=== PATIENT | male | born 1965 | race Caucasian/White ===

== ENCOUNTER 2016-08-15 10:59 | Emergency (ER) | payer SELFPAY ==
[~2016-08-15] VITALS: Ht 182.9 cm; Wt 115.0 kg
[2016-08-15 11:20] VITALS: BP 134/96; PULSE 99; RESP 16; TEMP 98.8; O2SAT 98
[2016-08-15 12:58] VITALS: BP 128/92; PULSE 92; RESP 18; O2SAT 98
[2016-08-15] MEDS ORDERED: INSULIN HUMAN REGULAR 1,000 UNITS/10 ML VIAL IVP ONE (13:15)
[2016-08-15] MEDS ORDERED: SODIUM CHLOR 0.9% 1000 ML INJ 1,000 ML IV ONE ×2 (13:15)
[2016-08-15 13:18] LABS: AUTOMATED NEUTROPHIL # 6.8 TH/MM3 (1.8-7.7); BASOPHIL # 0.1 TH/MM3 (0-0.2); BASOPHIL % 0.6 % (0.0-2.0); EOSINOPHIL # 0.2 TH/MM3 (0-0.4); EOSINOPHIL % 1.8 % (0.0-4.0); LYMPH % 27.1 % (9.0-44.0); LYMPHOCYTE # 2.9 TH/MM3 (1.0-4.8); MEAN CELL VOLUME 83.8 FL (80.0-100.0); MEAN CORPUSCULAR HEMOGLOBIN 28.9 PG (27.0-34.0); MEAN CORPUSCULAR HGB CONC 34.4 % (32.0-36.0); MONO % 5.7 % (0.0-8.0); NEUT % 64.8 % (16.0-70.0); PLATELET COUNT 230 TH/MM3 (150-450); RED BLOOD COUNT 5.73 MIL/MM3 (4.50-5.90); RED CELL DISTRIBUTION WIDTH 12.3 % (11.6-17.2); WHITE BLOOD COUNT 10.6 TH/MM3 (4.0-11.0)
[2016-08-15 13:19] LABS: HEMO FLAGS DIFF FINAL
[2016-08-15 13:24] LABS: CHLORIDE 97 MEQ/L (98-107); SODIUM (NA) 136 MEQ/L (136-145)
[2016-08-15 13:27] LABS: ANION GAP 14 MEQ/L (5-15); BICARBONATE 24.9 MEQ/L (21.0-32.0)
[2016-08-15 13:28] LABS: BLOOD UREA NITROGEN 19 MG/DL (7-18)
[2016-08-15 13:30] LABS: ALT (GPT) 25 U/L (12-78)
[2016-08-15 13:31] LABS: AST (GOT) 9 U/L (15-37); GLOMERULAR FILTRATION RATE 71 ML/MIN (>89)
[2016-08-15 13:32] LABS: TOTAL BILIRUBIN ADULT 0.6 MG/DL (0.2-1.0)
--- NOTE | 2016-08-15 13:32 | PD ---
HPI Chief Complaint: Complaint Time Seen by Provider: 12:51 Travel History International Travel<30 days: No Contact w/Intl Traveler<30days: No Traveled to known affect area: No History of Present Illness HPI This is a 50-year-old male who presents to the emergency department with fatigue , poor exercise tolerance, as well as polyuria and polydipsia. His symptoms of been constant, moderate severity and worsening over the past week. He was concerned that his sugar might be elevated. He's never been diagnosed with diabetes before. He says he's lost weight in the setting of this. He used to her primary care physician but his primary care physician and he never followed up with anyone new. [facility] Past Medical History Medical History: Denies Significant Hx Tetanus Vaccination: > 5 Years Influenza Vaccination: No Social History Alcohol Use: Yes (very rarely) Tobacco Use: Yes (1 ppd) Substance Use: No Allergies-Medications (Allergen,Severity, Reaction): Coded Allergies: No Known Allergies (Unverified , 08/15/16) Reported Meds & Prescriptions Reported Meds & Active Scripts Active No Active Prescriptions or Reported Medications Review of Systems Except as stated in HPI: all other systems reviewed are Neg Physical Exam Narrative GENERAL: Well-nourished, well-developed patient. SKIN: Warm and dry. HEAD: Normocephalic. EYES: No scleral icterus. No injection or drainage. NECK: Supple, trachea midline. CARDIOVASCULAR: Regular rate and rhythm without murmurs. RESPIRATORY: Breath sounds equal bilaterally. No accessory muscle use. GASTROINTESTINAL: Abdomen soft, non-tender, nondistended. MUSCULOSKELETAL: No cyanosis, or edema. Data Data Last Documented VS Vital Signs Date Time Temp Pulse Resp B/P Pulse Ox O2 Delivery O2 Flow Rate FiO2 08/15/16 12:58 92 18 128/92 98 Room Air 08/15/16 11:20 98.8 Orders Complete Blood Count With Diff (08/15/16 13:03) Comprehensive Metabolic Panel (08/15/16 13:03) Sodium Chlor 0.9% 1000 Ml Inj (Ns 1000 M (08/15/16 13:15) Insulin Human Regular Inj (Novolin R Inj (08/15/16 13:15) Sodium Chlor 0.9% 1000 Ml Inj (Ns 1000 M (08/15/16 13:15) Labs Laboratory Tests Test 08/15/16 13:13 White Blood Count 10.6 TH/MM3 Red Blood Count 5.73 MIL/MM3 Hemoglobin 16.5 GM/DL Hematocrit 48.0 % Mean Corpuscular Volume 83.8 FL Mean Corpuscular Hemoglobin 28.9 PG Mean Corpuscular Hemoglobin 34.4 % Concent Red Cell Distribution Width 12.3 % Platelet Count 230 TH/MM3 Mean Platelet Volume 10.1 FL Neutrophils (%) (Auto) 64.8 % Lymphocytes (%) (Auto) 27.1 % Monocytes (%) (Auto) 5.7 % Eosinophils (%) (Auto) 1.8 % Basophils (%) (Auto) 0.6 % Neutrophils # (Auto) 6.8 TH/MM3 Lymphocytes # (Auto) 2.9 TH/MM3 Monocytes # (Auto) 0.6 TH/MM3 Eosinophils # (Auto) 0.2 TH/MM3 Basophils # (Auto) 0.1 TH/MM3 CBC Comment DIFF FINAL Differential Comment Sodium Level 136 MEQ/L Potassium Level 4.0 MEQ/L Chloride Level 97 MEQ/L Carbon Dioxide Level 24.9 MEQ/L Anion Gap 14 MEQ/L Blood Urea Nitrogen 19 MG/DL Creatinine 1.10 MG/DL Estimat Glomerular Filtration 71 ML/MIN Rate Random Glucose 380 MG/DL Calcium Level 9.1 MG/DL Total Bilirubin 0.6 MG/DL Aspartate Amino Transf 9 U/L (AST/SGOT) Alanine Aminotransferase 25 U/L (ALT/SGPT) Alkaline Phosphatase 113 U/L Total Protein 7.3 GM/DL Albumin 3.6 GM/DL MDM Medical Decision Making Medical Screen Exam Complete: Yes Emergency Medical Condition: Yes Interpretation(s) Afebrile, mild tachycardia, normotensive No leukocytosis Hyperglycemia Differential Diagnosis Type 2 diabetes, dehydration, electrolyte abnormality Narrative Course This is a 50-year-old male who presents to the emergency department with signs and symptoms classic for new onset diabetes. He was placed on a monitor and an IV was established. Labs are obtained which confirmed a glucose of 380. He was given IV hydration and insulin. I don't think he requires admission. He was counseled on a low carbohydrate diet and will be started on metformin. He was given referral to primary care physician. Diagnosis Primary Impression: Type 2 diabetes mellitus Qualified Code: E11.9 - Type 2 diabetes mellitus without complication, without long-term current use of insulin Patient Instructions: General Instructions, Meal Planning with Diabetes Exchanges (GEN), Type 2 Diabetes in Adults (ED) Additional Instructions: If you develop severe chest pain, shortness of breath, sweating, lightheadedness , dizziness or difficulty breathing return to the emergency department immediately. Followup with your primary care physician in 2-3 days if your symptoms are not resolved. Med/Other Pt SpecificInfo: Prescription(s) given Scripts Metformin 500 Mg [id number] Mg PO BIDPC #60 TAB Ref 0 With meals Prov:Aspen Cloud MD 08/15/16 Disposition: 01 DISCHARGE HOME Condition: Stable Aspen Cloud MD Aug 15, 2016 13:32
[2016-08-15 13:33] LABS: ALKALINE PHOSPHATASE 113 U/L (45-117)
[2016-08-15] MEDS ORDERED: METF500T PO (13:58)
[2016-08-15 14:50] VITALS: BP 122/78; PULSE 79; RESP 18; O2SAT 96
== END 2016-08-15 14:57 | disposition home or self-care (01) ==
LOC: PHED 10:59
DX: E11.65 Type 2 diabetes mellitus with hyperglycemia (principal); F17.210 Nicotine dependence, cigarettes, uncomplicated
CPT/HCPCS: 80053; 85025; 96374; 99283; J1815; J7030